=== PATIENT | female | born 1950 | race Caucasian/White ===

== ENCOUNTER → 2017-03-17 | Outpatient (CLI) | payer BC ==
--- NOTE | 2017-03-17 17:11 | REPMRS ---
Patient History The patient states she had a clinical breast exam in 02/2017. Patient is postmenopausal. No known family history of cancer. Digital Woman Screen Mammo: March 17, 2017 - Exam #: [id number] Bilateral CC and MLO view(s) were taken. Technologist: Kisha Wagoner, Technologist Prior study comparison: March 16, 2016, digital woman screen mammo performed at [facility]. March 05, 2015, digital woman screen mammo performed at [facility]. FINDINGS: There are scattered fibroglandular densities. There has been no change in the appearance of the mammogram from the prior studies. There is a moderate amount of residual fibroglandular tissue which is fairly symmetric. There is no interval development of dominant mass, architectural distortion, or clustered microcalcification suggestive of malignancy. Large coarse benign appearing calcifications are present. No significant changes when compared with prior studies. ASSESSMENT: BI-RADS/ACR category 2 mammogram. Benign finding(s). Recommendation Routine screening mammogram in 1 year (for women over age 40). This mammogram was interpreted with the aid of an FDA-approved computer-aided dectection system. A. Negative x-ray reports should not delay biopsy if a dominant or clinically suspicious mass is present. B. Four to eight percent of cancers are not identified by mammography. C. Adenosis and dense breast may obscure an underlying neoplasm. Electronically Signed By: Bradley Valentin MD 03/17/17 9936
== END ==
LOC: M WHC 14:18
PROVIDERS: ATTEND Obstetrics & Gynecology
DX: Z12.31 Encounter for screening mammogram for malignant neoplasm of breast (principal); Z78.0 Asymptomatic menopausal state

== ENCOUNTER → 2018-03-18 | Outpatient (CLI) | payer BC | LOC: M WHC 07:56 | DX: Z12.31 Encounter for screening mammogram for malignant neoplasm of breast (principal); Z78.0 Asymptomatic menopausal state | CPT/HCPCS: 77067 ==

== ENCOUNTER → 2019-03-20 | Outpatient (CLI) | payer BC, MEDICARE ==
--- NOTE | 2019-03-20 09:53 | REPMRS ---
Patient History The patient states she had a clinical breast exam in 02/2019. No known family history of cancer. No Hormone Replacement Therapy 3D TOMOSYNTHESIS WAS PERFORMED. [facility] lifetime risk for breast cancer is 5.1%. Digital Woman Screen Mammo: March 20, 2019 - Exam #: [id number] Bilateral CC and MLO view(s) were taken. Technologist: Kisha Wagoner, Technologist Prior study comparison: March 18, 2018, bilateral digital woman screen mammo performed at [facility]. March 17, 2017, digital woman screen mammo performed at [facility]. FINDINGS: There are scattered fibroglandular densities. There has been no change in the appearance of the mammogram from the prior studies. There is a mild amount of residual fibroglandular tissue which is fairly symmetric. There is no interval development of dominant mass, architectural distortion, or clustered microcalcification suggestive of malignancy. Assessment: BI-RADS/ACR category 1 mammogram. Negative Mammogram. Recommendation Routine screening mammogram in 1 year (for women over age 40). This mammogram was interpreted with the aid of an FDA-approved computer-aided dectection system. Electronically Signed By: Kris Fischer MD 03/20/19 0952
== END ==
LOC: M WHC 08:31
PROVIDERS: ATTEND Obstetrics & Gynecology
DX: Z12.31 Encounter for screening mammogram for malignant neoplasm of breast (principal)

== ENCOUNTER → 2020-03-28 | Outpatient (CLI) | payer BC ==
--- NOTE | 2020-04-15 17:37 | REPMRS ---
Patient History The patient states she had a clinical breast exam in March 2020. Patient is postmenopausal. No known family history of cancer. No Hormone Replacement Therapy Digital Woman Screen Mammo: March 28, 2020 - Exam #: [id number] Bilateral CC and MLO view(s) were taken. Technologist: Monalisa Snell Technologist Prior study comparison: March 20, 2019, bilateral digital woman screen mammo performed at [facility]. March 18, 2018, bilateral digital woman screen mammo performed at [facility]. March 17, 2017, digital woman screen mammo performed at [facility]. FINDINGS: There are scattered fibroglandular densities. The Volpara volumetric breast density category is:B. There has been no change in the appearance of the mammogram from the prior studies. There is a mild amount of scattered fibroglandular density which is fairly symmetric. There is no interval development of dominant mass, architectural distortion, or grouped microcalcification suggestive of malignancy. 3-D tomosynthesis shows no additional findings. Assessment: BI-RADS/ACR category 1 mammogram. Negative Mammogram. Recommendation Routine screening mammogram of both breasts in 1 year (for women over age 40). This patient's Lifetime Breast Cancer Risk is estimated at 4.8 %. This mammogram was interpreted with the aid of an FDA-approved computer-aided dectection system. Electronically Signed By: Solitario Fernandez MD 04/15/20 4854
== END ==
LOC: M WHC 06:17
PROVIDERS: ATTEND Obstetrics & Gynecology
DX: Z12.31 Encounter for screening mammogram for malignant neoplasm of breast (principal); Z78.0 Asymptomatic menopausal state

== ENCOUNTER → 2021-05-07 | Outpatient (CLI) | payer BC ==
--- NOTE | 2021-05-07 15:40 | REPMRS ---
Patient History The patient states she has not had a clinical breast exam in over a year. No known family history of cancer. No Hormone Replacement Therapy Moderna vaccine 08/30/20 left arm. 09/27/20 left arm. Patient states no breast complaints today. Patient has signed MRS History Sheet. Digital Woman Screen Mammo: May 07, 2021 - Exam #: [id number] Bilateral CC and MLO view(s) were taken. Technologist: RT Catie Prior study comparison: March 28, 2020, bilateral digital woman screen mammo performed at [facility] [place]. March 20, 2019, bilateral digital woman screen mammo performed at [facility] [place]. FINDINGS: The breast tissue is heterogeneously dense. This may lower the sensitivity of mammography. Screening. Digital screening (2D) mammography was performed bilaterally in the CC and MLO projections. Additionally, breast tomosynthesis (3D mammography) was performed bilaterally in the CC and MLO projections. Todays exam was compared to the prior exam/exams. By history, the patient has no complaints of a palpable breast abnormality or other significant breast complaints. The Volpara volumetric breast density category is C, the breasts are heterogenously dense which may obscure small masses. The breasts are unchanged in size and shape. There are no keri-soft tissue densities or spiculated masses. There is no internal architectural distortion. There are no suspicious keri-calcific clusters. Skin thickening or nipple retraction is not present. IMPRESSION: BI-RADS Category 2- Benign Findings. There is no evidence of malignant alteration of the breasts. Followup examination recommended in one year. This mammogram was read with the assistance of [email or web address],an FDA approved computer aided detection system for mammography. The lifetime Tyrer-Cuzick score is 4.5% Negative x-ray reports should not delay surgical consultation if a dominant or clinically suspicious mass is present. Not all breast cancers can be identified by mammography. Therefore, we recommend that you continue to perform regular breast self-examination and physical examination and then promptly contact your physician of any concerns or changes. Due to the density of the breasts, MRI/whole breast screening ultrasound is warranted. Adenosis and dense breasts may obscure an underlying neoplasm. No significant changes when compared with prior studies. Assessment: BI-RADS/ACR category 2 mammogram. Benign Findings. Recommendation Routine screening mammogram of both breasts in 1 year. Electronically Signed By: Angel Perez MD 05/07/21 1098
== END ==
LOC: M WHC 14:44
PROVIDERS: ATTEND Obstetrics & Gynecology
DX: Z12.31 Encounter for screening mammogram for malignant neoplasm of breast (principal)

== ENCOUNTER → 2021-05-30 | Outpatient (CLI) | payer BC | LOC: M LABSMTC 10:24 | PROVIDERS: ATTEND Anesthesiology | DX: Z01.812 Encounter for preprocedural laboratory examination (principal); Z20.822 Contact with and (suspected) exposure to COVID-19 ==

== ENCOUNTER 2021-06-04 08:47 | Day surgery (SDC) | payer BC ==
[~2021-06-04] VITALS: Ht 152.4 cm; Wt 47.6 kg
[~2021-06-04 08:47] MED LIST: NS 1,000 ML IV ONE
--- OUTSIDE RECORDS SUMMARY | 2021-06-04 08:53 | CCD | Continuity of Care Document ---
Author Author Casandra NUNES Organization Unknown Address [address] [place] [address] Phone [phone] Care Team Providers Care Casing Trimmer Name Role Phone Prashantvishnu Kay R FORM SETTER STEEL PAN FORMS AUTM [phone] Problems Active Problems Provider Date Migraine variants, not intractable Emelyn Nunes MD Onset : 01/13/2012 Social History Type Date Description Comments Sex Unknown Tobacco Use Start: Unknown Never Smoked Cigarettes Smoking Status Reviewed: 05/07/21 Never Smoked Cigarettes ETOH Use Non-smoker, Occasional Drinker, Non-drug User Tobacco Use Start: Unknown Patient has never smoked Exercise Type/Frequency Exercises regularly Allergies, Adverse Reactions, Alerts Active Allergies Criticality Reaction | Severity Comments Date Nkda Unable to assess criticality 11/15/2006 Medications Active Medications SIG Qnty Indications Ordering Provide r Date Multivitamins Tablets Emelyn Nunes MD 11/15/2006 Immunizations Description No Information Available Vital Signs Date Vital Result Comment 05/07/2021 8:28am BP Systolic 118 mmHg BP Diastolic 70 mmHg Height 60.5 inches 5'0.50" Weight 107.00 lb BMI (Body Mass Index) 20.6 kg/m2 BSA (Body Surface Area) 1.44 m2 03/27/2020 2:07pm BP Systolic 124 mmHg BP Diastolic 72 mmHg Height 60.25 inches 5'0.25" Weight 111.00 lb BMI (Body Mass Index) 21.5 kg/m2 BSA (Body Surface Area) 1.46 m2 Results Description No Information Available Procedures Date Code Description Status 05/07/2021 39174 Preventive Visit Est > 64 Yrs C ompleted 04/08/2020 [id number] Mammogram Completed 03/20/2019 [id number] Mammogram Completed 03/18/2018 [id number] Mammogram Completed 03/05/2015 [id number] Mammogram Completed 05/18/2012 [id number] Colonoscopy Completed 12/11/2008 [id number] Mammogram Completed Medical Devices Description No Information Available Encounters Type Date Location Provider Dx Diagnosis Office Visit 05/07/2021 2:00p [facility] director of cath lab Emelyn Nunes MD N9 5.2 Postmenopausal atrophic vaginitis Z01.419 Encntr for world language teacher exam (general ) (routine) w/o abn findings Z12.4 Encounter for screening for malignant neoplasm of cervix Z12.39 Encounter for oth screening for malignant neoplasm of breast Assessments Date Code Description Provider 05/07/2021 N95.2 Postmenopausal atrophic vaginiti s Emelyn Nunes MD 05/07/2021 Z01.419 Encounter for gyneco logical examination (general) (routine) without abnormal findings Emelyn Nunes MD 05/07/2021 Z12.4 Encounter for screening for ashia gnant neoplasm of cervix Emelyn Nunes MD 05/07/2021 Z12.39 Encounter for other screening for malignant neoplasm of breast Emelyn Nunes MD Plan of Treatment Future Appointment(s):* 05/13/2022 2:00 pm - Emelyn Nunes MD at [facility] director of cath lab 05/07/2021 - Emelyn Nunes MD* N95.2 Postmenopausal atrophic vaginitis * Z01.419 Encounter for gynecological examination (general) (routine) without abnormal findings * Z12.4 Encounter for screening for malignant neoplasm of cervix* New Labs:* Thinprep W/Reflex HR HPV If Asc-US, Ordered: 05/07/21 * Z12.39 Encounter for other screening for malignant neoplasm of breast Functional Status Description No Information Available Mental Status Description No Information Available Referrals Description No Information Available
--- OUTSIDE RECORDS SUMMARY | 2021-06-04 08:53 | CCD | Continuity of Care Document ---
Author Author Casandra NUNES Organization Unknown Address [address] [place] [address] Phone [phone] Care Team Providers Care Slot Floor Attendant Name Role Phone Prashantvishnu Kay R PLATE SETTER AUTM [phone] Problems Active Problems Provider Date Migraine variants, [...] Available Procedures Date Code Description Status 05/07/2021 48469 Preventive Visit Est > 64 Yrs C ompleted 04/08/2020 [id number] Mammogram Completed 03/20/2019 [id number] Mammogram Completed 03/18/2018 [id number] Mammogram Completed 03/05/2015 [id number] Mammogram Completed 05/18/2012 [id number] Colonoscopy Completed 12/11/2008 [id number] Mammogram Completed Medical Devices Description No Information Available Encounters Type Date Location Provider Dx Diagnosis Office Visit 05/07/2021 2:00p [facility] hoop riveting machine operator Emelyn Nunes MD N9 5.2 Postmenopausal atrophic vaginitis Z01.419 Encntr for superintendent colliery exam (general ) (routine) w/o abn findings [...] pm - Emelyn Nunes MD at [facility] hoop riveting machine operator 05/07/2021 - Emelyn Nunes MD* N95.2 Postmenopausal [...]
--- OUTSIDE RECORDS SUMMARY | 2021-06-04 08:53 | CCD | Continuity of Care Document ---
Author Author Casandra LANDRUM FERMENTER HELPER Organization Unknown Address [address] [place] [address] Phone [phone] Care Team Providers Care Sales Representative [facility]om[facility] Name Role Phone Se Covarrubias M.D. & Associate AUTM Problems Description No Information Available Social History Type Date Description Comments Sex Unknown Tobacco Use Start: Unknown Never Used Smokeless Tobacco ETOH Use Occasionally consumes alcohol Tobacco Use Start: Unknown Patient has never smoked Recreational Drug Use Denies Drug Use Smoking Status Reviewed: 02/15/20 Patient has never smoked Exercise Type/Frequency Exercises regularly walk ing Tattoo/Piercing Pierced ears Sun Exposure Does not use sunscreen Seat Belt/Car Seat Always uses seat belt Bike Helmet Never Does not bike ri de Smoke Alarms Yes Smoke Alarms Carbon Monoxide Detector: Yes Allergies, Adverse Reactions, Alerts Description No Known Drug Allergies Medications Description No Active Medications Immunizations CPT Code Status Date Vaccine Lot # [id number] Given 03/13/2021 Pneumococcal Vaccine [id number] Given 09/27/2020 Moderna Sars-(Co vid-19) vaccine, mRNA, LNP-S, PF, 100 mcg/ 0.5 mL [id number] Given 08/30/2020 Moderna Sars-(Co vid-19) vaccine, mRNA, LNP-S, PF, 100 mcg/ 0.5 mL 78625 Given 06/07/2019 Prevnar 13 [id number] Given 05/30/2013 Zostavax Vital Signs Date Vital Result Comment 03/13/2021 3:28pm BP Systolic 126 mmHg BP Diastolic 65 mmHg Heart Rate 85 /min Body Temperature 97.4 F Respiratory Rate 14 /min Height 60.25 inches 5'0.25" Weight 91.38 lb O2 % BldC Oximetry 98 % Peak Expiratory Flow Rate 298 Estimated Peak Flow Rate [place] Body Weight 100 lb BMI (Body Mass Index) 17.7 kg/m2 02/15/2020 2:20pm BP Systolic 132 mmHg BP Diastolic 70 mmHg Heart Rate 96 /min Body Temperature 98.3 F Respiratory Rate 12 /min Height 60.25 inches 5'0.25" Weight 114.00 lb O2 % BldC Oximetry 98 % Peak Expiratory Flow Rate 300 Estimated Peak Flow Rate [place] Body Weight 100 lb BMI (Body Mass Index) 22.1 kg/m2 Results Description No Information Available Procedures Date Code Description Status 03/13/2021 63181 Preventive Medicine Over 65 Year s Completed 03/28/2020 [id number] Mammogram Completed 2010 07535293 Colonoscopy Completed Medical Devices Description No Information Available Encounters Type Date Location Provider Dx Diagnosis Office Visit 03/13/2021 3:30p Main Office Jade Landrum FNP Z00.0 0 Encntr for general adult medical exam w/o abnormal findings Z23 Encounter for immunization Assessments Date Code Description Provider 03/13/2021 Z00.00 Encounter for genera l adult medical examination without abnormal findings Jade Landrum FNP 03/13/2021 Z23 Encounter for immunization Jade Barfield FNP Plan of Treatment 03/13/2021 - Jade Landrum FNP* Z00.00 Encounter for general adult medical examination without abnormal findings* New Labs:* Comprehensive Metabolic Profil, Scheduled: 03/02/22 * Lipid Panel, Scheduled: 03/02/22 * Comments:* Health maintenance up to date. Overall doing well. SHORTY/PHQ 9/CAGE questionnaire reviewed. Discussed healthy lifestyle choices. * Follow up:* annually * Z23 Encounter for immunization Functional Status Functional Condition Comment Date Status Bifocal glasses Active Independent with all ADL's Activ e Mental Status Mental Condition Comment Date Status None Active Referrals Refer to Reason for Referral Status Appt Date Se Covarrubias M.D. & Associate pt is due for her 1 0 year repeat colonoscopy. thank you. Scheduled 04/08/2021 [address] [place] [address] [phone]
--- OUTSIDE RECORDS SUMMARY | 2021-06-04 08:53 | CCD | Continuity of Care Document ---
Author Author Casandra IBRAHIM COUNTER ROLLER Organization Unknown Address [address] [place] [address] Phone [phone] Care Team Providers Care Pen Rider Name Role Phone Se Covarrubias M.D. & [...] CPT Code Status Date Vaccine Lot # [id number] Given 03/13/2021 Pneumococcal Vaccine [id number] Given 09/27/2020 Moderna Sars-(Co vid-19) vaccine, mRNA, LNP-S, PF, 100 mcg/ 0.5 mL 71754 Given 08/30/2020 Moderna Sars-(Co vid-19) vaccine, mRNA, LNP-S, PF, 100 mcg/ 0.5 mL 15443 Given 06/07/2019 Prevnar 13 42896 Given 05/30/2013 Zostavax Vital Signs Date Vital Result Comment 03/13/2021 3:28pm BP Systolic 126 mmHg BP Diastolic 65 mmHg Heart Rate 85 /min Body Temperature 97.4 F Respiratory Rate 14 /min Height 60.25 inches 5'0.25" Weight 91.38 lb O2 % BldC Oximetry 98 % Peak Expiratory Flow Rate 298 Estimated Peak Flow Rate [place] Body Weight 100 lb BMI (Body Mass Index) 17.7 kg/m2 02/15/2020 2:20pm BP Systolic 132 mmHg BP Diastolic 70 mmHg Heart Rate 96 /min Body Temperature 98.3 F Respiratory Rate 12 /min Height 60.25 inches 5'0.25" Weight 114.00 lb O2 % BldC Oximetry 98 % Peak Expiratory Flow Rate 300 Estimated Peak Flow Rate [place] Body Weight 100 lb BMI (Body Mass Index) 22.1 kg/m2 Results Description No Information Available Procedures Date Code Description Status 03/28/2020 [id number] Mammogram Completed 2010 [id number] Colonoscopy Completed Medical Devices Description No Information Available Encounters Description No Information Available Assessments Date Code Description Provider 03/13/2021 Z00.00 Encounter for genera l adult medical examination without abnormal findings Jade Ibrahim FNP Plan of Treatment 03/13/2021 - Jade Ibrahim FNP* Z00.00 Encounter for general adult medical examination without abnormal findings* New Labs:* Comprehensive Metabolic Profil, Scheduled: 03/02/22 * Lipid Panel, Scheduled: 03/02/22 * Comments:* Health maintenance up to date. Overall doing well. SHORTY/PHQ 9/CAGE questionnaire reviewed. Discussed healthy lifestyle choices. Functional Status Functional Condition Comment Date Status Bifocal glasses Active Independent with all ADL's Activ e Mental Status Mental Condition Comment Date Status None Active Referrals Refer to Reason for Referral Status Appt Date Se Covarrubias M.D. & Associate pt is due for her 1 0 year repeat colonoscopy. thank you. Scheduled 04/08/[address] [place] [address] [id number] [phone]
--- OUTSIDE RECORDS SUMMARY | 2021-06-04 08:53 | CCD ---
Continuity of Care Document (CCD) Created on: 04/08/2021 Casandra Ann External Reference #: [id number] : [id number] Sex: Female Author Author Casandra COVARRUBIAS Organization Unknown Address [address] [place] [address] Phone [phone] Care Team Providers Care Vamp Throater Name Role Phone Jade Landrum AUTM [phone] Problems Active Problems Provider Date Screening for malignant neoplasm of colon Zhen Strange Onset: 04/21/2012 Social History Type Date Description Comments Sex Unknown ETOH Use Occasionally Tobacco Use Start: Unknown Patient has never smoked Allergies, Adverse Reactions, Alerts Description No Known Drug Allergies Medications Active Medications SIG Qnty Indications Ordering Provide r Date Sutab [id number] Tablets as directed 1box Se Covarrubias M.D. 04/08/2021 History Medications No Active Medications Unknown - 04/08/2021 Immunizations Description No Information Available Vital Signs Date Vital Result Comment 04/08/2021 2:44pm Height 60 inches 5'0" Weight 107.00 lb BP Systolic 127 mmHg BP Diastolic 87 mmHg Heart Rate 92 /min BMI (Body Mass Index) 20.9 kg/m2 Weight 48.535 kg Body Temperature 97.3 F 04/21/2012 2:02pm Height 60 inches 5'0" Weight 119.00 lb BP Systolic 110 mmHg BP Diastolic 80 mmHg Heart Rate 66 /min BMI (Body Mass Index) 23.2 kg/m2 Weight 53.978 kg Results Description No Information Available Procedures Date Code Description Status 04/08/2021 18222 Office/Outpatient New Low MDM 30 -44 Minutes Completed Medical Devices Description No Information Available Encounters Type Date Location Provider Dx Diagnosis Office Visit 04/08/2021 2:00p Main Office Se Covarrubias M.D. Z 12.11 Encounter for screening for malignant neoplasm of colon Assessments Date Code Description Provider 04/08/2021 Z12.11 Screening for malignant neoplasm of colon Se Covarrubias M.D. Plan of Treatment Future Appointment(s):* 06/04/2021 12:00 pm - Se Covarrubias M.D. at Main Office 04/08/2021 - Se Covarrubias M.D.* Z12.11 Screening for malignant neoplasm of colon* Comments:* 70 yo wf who presents for a screening colonoscopy. Last scope was in 2011. No c/o abdominal pain, weight loss, change in bowel habits, or rectal bleeding. No family h/o colon cancer. No h/o chest pain, or sob. Plan:1.Schedule patient for a colonoscopy.2.Informed consent given to the patient.3.Pt. advised to stop aspirin,plavix, and anticoagulants at least 3 to 7 days prior to the procedure. Functional Status Description No Information Available Mental Status Description No Information Available Referrals Description No Information Available
--- OUTSIDE RECORDS SUMMARY | 2021-06-04 08:53 | CCD | Continuity of Care Document ---
Author Author Casandra COVARRUBIAS Organization Unknown Address [address] [place] [address] Phone [phone] Care Team Providers Care Quick Sketch Artist Name Role Phone Jade Landrum AUTM [phone] Problems Active Problems Provider Date Screening for malignant neoplasm of colon Zhen Strange Onset: 04/21/2012 Social History Type Date Description Comments Sex Unknown ETOH Use Occasionally Tobacco Use Start: Unknown Patient has never smoked Allergies, Adverse Reactions, Alerts Description No Known Drug Allergies Medications Active Medications SIG Qnty Indications Ordering Provide r Date Sutab [id number] Tablets as directed 1box Se Covarrubias M.D. [...] Available Procedures Date Code Description Status 04/08/2021 94059 Office/Outpatient New Low MDM 30 -44 Minutes [...] Treatment Future Appointment(s):* 06/04/2021 12:00 pm - eS Covarrubias M.D. at Main Office 04/08/2021 - [...]
[2021-06-04] MEDS ORDERED: LIDOCAINE 2% 100MG/5ML SDV (FOR ANES.) As Ordered ONE (10:47)
[2021-06-04] MEDS ORDERED: propofoL 500 MG/50 ML VIAL As Ordered ONE (10:47)
--- NOTE | 2021-06-04 11:09 | ROOR ---
Patient Name: Casandra Ann Procedure Date: 06/04/2021 10:42 AM Date of : 1950 Age: 70 Room: [facility] Gender: Female Note Status: Finalized Procedure: Total Colonoscopy to Cecum + Cold Snare Polypectomy + Hemoclip Indications: Screening for colorectal malignant neoplasm Providers: Se Covarrubias MD Referring MD: Perla Gomez MD Requesting Provider: Medicines: Monitored Anesthesia Care Complications: No immediate complications. Procedure: Pre-Anesthesia Assessment: - The heart rate, respiratory rate, oxygen saturations, blood pressure, adequacy of pulmonary ventilation, and response to care were monitored throughout the procedure. The Colonoscope was introduced through the anus and advanced to the cecum, identified by appendiceal orifice and ileocecal valve. The colonoscopy was performed without difficulty. The patient tolerated the procedure well. The quality of the bowel preparation was excellent. Findings: The perianal and digital rectal examinations were normal. Non-bleeding internal hemorrhoids were found during retroflexion. The hemorrhoids were small and Grade I (internal hemorrhoids that do not prolapse). A small polyp was found in the hepatic flexure. The polyp was sessile. The polyp was removed with a cold snare. Resection and retrieval were complete. To prevent bleeding after the polypectomy, one hemostatic clip was successfully placed. There was no bleeding at the end of the procedure. Multiple small and large-mouthed diverticula were found in the recto-sigmoid colon, sigmoid colon and descending colon. The exam was otherwise without abnormality on direct and retroflexion views. Impression: - Non-bleeding internal hemorrhoids. - One small polyp at the hepatic flexure, removed with a cold snare. Resected and retrieved. Clip was placed. - Diverticulosis in the recto-sigmoid colon, in the sigmoid colon and in the descending colon. - The examination was otherwise normal on direct and retroflexion views. - The exam was otherwise normal to the cecum. Recommendation: - Patient has a contact number available for emergencies. The signs and symptoms of potential delayed complications were discussed with the patient. Return to normal activities tomorrow. Written discharge instructions were provided to the patient. - High fiber diet. - Discharge patient to home. - Continue present medications. - Await pathology results. - Telephone GI clinic for pathology results in 1 week. - Repeat colonoscopy in 5 years for surveillance based on pathology results. - Return to referring physician. - The findings and recommendations were discussed with the patient. Procedure Code(s): --- Professional --- 79341, Colonoscopy, flexible; with removal of tumor(s), polyp(s), or other lesion(s) by snare technique Diagnosis Code(s): --- Professional --- Z12.11, Encounter for screening for malignant neoplasm of colon K64.0, First degree hemorrhoids K63.5, Polyp of colon K57.30, Diverticulosis of large intestine without perforation or abscess without bleeding CPT copyright 2019 [employer]. All rights reserved. The codes documented in this report are preliminary and upon access nurse review may be revised to meet current compliance requirements. Se Covarrubias MD Se Covarrubias MD 06/04/2021 11:09:35 AM Electronically signed by Se Covarrubias MD Number of Addenda: 0 Note Initiated On: 06/04/2021 10:42 AM Estimated Blood Loss: Estimated blood loss: none.
[2021-06-04 11:33] VITALS: BP 127/73
== END 2021-06-04 12:04 | disposition home or self-care (01) ==
LOC: M OPP 08:47
PROVIDERS: ATTEND Internal Medicine Gastroenterology
DX: Z12.11 Encounter for screening for malignant neoplasm of colon (principal); D12.3 Benign neoplasm of transverse colon; K57.30 Diverticulosis of large intestine without perforation or abscess without bleeding; K64.0 First degree hemorrhoids

== ENCOUNTER → 2021-12-29 | Outpatient (CLI) | payer BC | LOC: M PLALAB 08:50 | PROVIDERS: ATTEND Nurse Practitioner Family | DX: M24.151 Other articular cartilage disorders, right hip (principal); M25.78 Osteophyte, vertebrae; M46.99 Unspecified inflammatory spondylopathy, multiple sites in spine ==

== ENCOUNTER → 2022-01-22 | Outpatient (CLI) | payer BC ==
[2022-01-22 10:55] LABS: ALBUMIN 3.8 GM/DL (3.2-5.2); ALT/SGPT 18 U/L (12-78); BILIRUBIN,TOTAL 0.7 MG/DL (0.2-1.0); BLOOD UREA NITROGEN 16 MG/DL (7-18); CALCIUM LEVEL 9.2 MG/DL (8.8-10.2); CARBON DIOXIDE LEVEL 31 MEQ/L (21-32); CHLORIDE LEVEL 109 MEQ/L (98-107); CHOLESTEROL LEVEL 183 MG/DL (<200); CHOLESTEROL RISK RATIO 1.678 (<5); CREATININE FOR GFR 0.79 MG/DL (0.55-1.30); GLOMERULAR FILTRATION RATE > 60.0 (>39); GLUCOSE, FASTING 80 MG/DL (70-100); HDL CHOLESTEROL 109 MG/DL (>40); LDL CHOLESTEROL 65 MG/DL (<100); NON-HDL-C 74 MG/DL; POTASSIUM SERUM 4.2 MEQ/L (3.5-5.1); SODIUM LEVEL 142 MEQ/L (136-145); TOTAL PROTEIN 6.9 GM/DL (6.4-8.2); TRIGLYCERIDES LEVEL 43 MG/DL (<150)
== END ==
LOC: M PLALAB 09:10
PROVIDERS: ATTEND Nurse Practitioner Family
DX: Z00.00 Encounter for general adult medical examination without abnormal findings (principal)

== ENCOUNTER → 2022-07-15 | Outpatient (CLI) | payer BC | LOC: M WHC 07:14 | PROVIDERS: ATTEND Nurse Practitioner Family | DX: Z12.31 Encounter for screening mammogram for malignant neoplasm of breast (principal) ==

== ENCOUNTER → 2022-07-15 | Outpatient (REF) | payer BC | LOC: M PLALAB 09:56 | PROVIDERS: ATTEND Nurse Practitioner Family | DX: Z12.4 Encounter for screening for malignant neoplasm of cervix (principal) | CPT/HCPCS: 87624; G0123 ==

== ENCOUNTER → 2023-07-16 | Outpatient (REF) | payer BC | LOC: M SFHCWAGY 15:44 | PROVIDERS: ATTEND Nurse Practitioner Family | DX: Z12.4 Encounter for screening for malignant neoplasm of cervix (principal) | CPT/HCPCS: 87624; G0123 ==

== ENCOUNTER → 2023-07-16 | Outpatient (CLI) | payer BC | LOC: M WHC 09:10 | PROVIDERS: ATTEND Nurse Practitioner Family | DX: Z12.31 Encounter for screening mammogram for malignant neoplasm of breast (principal) ==

== ENCOUNTER → 2024-02-28 | Outpatient (CLI) | payer BC, MEDICARE ==
[2024-02-28 15:28] LABS: BASO # 0.1 10^3/uL (0.0-0.2); BASO % 0.6 % (0.0-1.0); EOS # 0.2 10^3/uL (0.0-0.5); EOS % 2.6 % (0.0-3.0); HEMATOCRIT 41.4 % (36.0-47.0); HEMOGLOBIN 13.4 g/dl (12.0-15.5); LYMPH # 1.1 10^3/uL (1.5-5.0); LYMPH % 12.8 % (24.0-44.0); MEAN CORPUSCULAR HEMOGLOBIN 29.6 pg (27.0-33.0); MEAN CORPUSCULAR HGB CONC 32.4 g/dl (32.0-36.5); MEAN CORPUSCULAR VOLUME 91.6 fl (80.0-96.0); MONO # 0.9 10^3/uL (0.0-0.8); MONO % 10.7 % (2.0-8.0); NEUTROPHILS % 72.8 % (36.0-66.0); PLATELET COUNT, AUTOMATED 296 10^3/uL (150-450); RED BLOOD COUNT 4.52 10^6/uL (4.00-5.40); WHITE BLOOD COUNT 8.2 10^3/uL (4.0-10.0)
[2024-02-28 15:55] LABS: ALBUMIN 3.3 G/DL (3.2-5.2); ALKALINE PHOSPHATASE 79 U/L (46-116); ALT/SGPT 12 U/L (7.0-40); AST/SGOT 9 U/L (<34); BILIRUBIN,TOTAL 0.5 MG/DL (0.3-1.2); BLOOD UREA NITROGEN 16 MG/DL (9-23); CALCIUM LEVEL 9.4 MG/DL (8.3-10.6); CARBON DIOXIDE LEVEL 28 MMOL/L (20-31); CHLORIDE LEVEL 105 MMOL/L (98-107); CREATININE FOR GFR 0.73 MG/DL (0.55-1.30); GLOMERULAR FILTRATION RATE > 60.0 (>39); GLUCOSE, FASTING 81 MG/DL (74-106); MAGNESIUM LEVEL 2.1 MG/DL (1.8-2.4); POTASSIUM SERUM 4.7 MMOL/L (3.5-5.1); SODIUM LEVEL 140 MMOL/L (136-145); TOTAL PROTEIN 6.7 G/DL (5.7-8.2)
[2024-02-28 15:56] LABS: THYROID STIMULATING HORMONE 1.517 uIU/ML (0.55-4.78)
[2024-02-28 15:57] LABS: FREE T4 1.15 NG/DL (0.89-1.76)
== END ==
LOC: M PLALAB 12:31
PROVIDERS: ATTEND Nurse Practitioner Family
DX: I49.3 Ventricular premature depolarization (principal); J18.8 Other pneumonia, unspecified organism; R00.2 Palpitations; R94.31 Abnormal electrocardiogram [ECG] [EKG]

== ENCOUNTER → 2024-10-11 | Outpatient (CLI) | payer MEDICARE | LOC: M WHC 13:16 | PROVIDERS: ATTEND Nurse Practitioner Family | DX: Z12.31 Encounter for screening mammogram for malignant neoplasm of breast (principal); R92.323 Mammographic fibroglandular density, bilateral breasts ==